=== PATIENT | female | born 1995 | race Two or more races ===

== ENCOUNTER 2017-07-01 12:38 | Emergency (ER) | payer BC, OTHER ==
[~2017-07-01] VITALS: Ht 170.2 cm; Wt 113.4 kg
[2017-07-01 13:38] LABS: Basophils # (auto) 0.1 uL; Basophils % (auto) 0.6 % (0.0-2.0); Eosinophils # (auto) 0.1 uL; Eosinophils % (auto) 1.2 % (0.0-7.0); Hematocrit 40.7 % (36.0-46.0); Hemoglobin 13.5 g/dL (12.2-16.2); Lymphocytes # (auto) 2.2 uL; Lymphocytes % (auto) 23.2 % (10.0-50.0); Mean Corpuscular Hemoglobin 28.6 pg (28.0-32.0); Mean Corpuscular Hgb Conc. 33.2 g/dL (32.0-36.0); Monocytes # (auto) 0.8 uL; Monocytes % (auto) 8.6 % (0.0-12.0); Neutrophils # (auto) 6.2 uL; Neutrophils % (auto) 66.4 % (37.0-80.0); Nucleated Red Blood Cells % 0.1 %; Platelet Count (auto) 353 10^3/uL (140-450); Red Blood Cells 4.73 10^6/uL (4.0-5.20); Red Cell Distribution Width 13.2 % (11.8-14.3); White Blood Cell 9.4 10^3/uL (4.4-10.8)
[2017-07-01 14:03] LABS: Alanine Aminotransferase 42 U/L (13-56); Albumin 3.6 g/dL (3.4-5.0); Alkaline Phosphatase 90 U/L (45-117); Anion Gap 5 (5-15); Aspartate Aminotransferase 25 U/L (15-37); BUN/Creatinine Ratio 12.9; Bilirubin, Total 0.5 mg/dL (0.2-1.0); Blood Urea Nitrogen 11 mg/dL (7-18); Calcium 8.5 mg/dL (8.5-10.1); Carbon Dioxide 25 mmol/L (21-32); Chloride 109 mmol/L (98-107); GFR African American 110 mL/min; GFR Non-African American 91 mL/min; Glucose 112 mg/dL (74-106); Potassium 3.8 mmol/L (3.5-5.1); Sodium 139 mmol/L (136-145)
[2017-07-01 15:17] VITALS: BP 143/92
== END 2017-07-01 15:35 | disposition home or self-care (01) ==
LOC: ER 12:44
DX: F41.9 Anxiety disorder, unspecified (principal); Z88.0 Allergy status to penicillin
CPT/HCPCS: 36415; 71046; 80053; 84443; 84484; 85025; 93005